=== PATIENT | male | born 1950 | race Caucasian/White ===

== ENCOUNTER 2016-09-29 14:34 | Inpatient (IN) ==
--- NOTE | 2016-09-29 14:43 | PROVIDER DOCUMENTATION ---
HPI-Neurological Disorder - General Chief Complaint: Seizure Stated Complaint: UNCONSCIOUS/ETOH Time Seen by Provider: 09/29/16 14:39 Source: patient, EMS, old records Allergies/Adverse Reactions: Patient Allergies Allergy/AdvReac Type Severity Reaction Status Date / Time propoxyphene HCl * Allergy seizures Verified 05/18/15 15:04 [From [facility]] Home Medications: Home Medication List Medication Instructions Recorded Confirmed Last Taken Type No Home Medications 12/24/14 09/29/16 Unknown History - History of Present Illness-Neuro Nature of Presenting Problem: pt w/ known hx of alcoholism and hx of prior seizure several years ago, brought by EMS summoned by ? person at pt' home who witnessed a tonic-clonic seizure. pt was incontinent w/ typical post-ictal confusion upon arrival, now rapidly clearing. he reports he wanted to "get off" the alcohol and has had nothing to drink (and no BZD or other substitution Rx) for past several days. he denies injury from the seizure. he denies hallucinosis. he denies recent head injury , or "sickness." Review of Systems - Adult - REVIEW OF SYSTEMS - ADULT Constitutional: reports: no symptoms reported Eyes: reports: no symptoms reported Ears, Nose, Mouth & Throat: reports: no symptoms reported Cardiovascular: reports: no symptoms reported Respiratory: reports: no symptoms reported Gastrointestinal: reports: no symptoms reported Genitourinary: reports: no symptoms reported Musculoskeletal: reports: no symptoms reported Integumentary: reports: no symptoms reported Neurological: reports: see HPI Psychiatric: reports: no symptoms reported Endocrine: reports: no symptoms reported Hematologic/Lymphatic: reports: no symptoms reported Allergic/Immunologic: reports: no symptoms reported All Other Systems: Reviewed and Negative Past History - Adult - PAST MEDICAL HISTORY-ADULT Review of Records: reports: Old Records Reviewed Major Childhood Illnesses: reports: denies history Cardiovascular: reports: HTN, hyperlipidemia Neurological: reports: CVA Psychiatric: reports: depression - PRIOR SURGERIES/PROCEDURES Surgical/Procedure History: reports: none - IMMUNIZATION STATUS Childhood Immunizations: See Nurse Assessment Flu Vaccine: See Nurse Assessment Physical Exam- Neurological - Physical Exam-Neuro Initial Vital Signs Reviewed: Yes General Appearance: alert, mild distress Eye Exam: bilateral eye: PERRL, EOMI HENMT: normocephalic/atraumatic Head Injury: no evidence of injury Neck: non-tender, full range of motion Respiratory: lungs clear, normal breath sounds Cardiovascular: normal peripheral pulses, regular rate, rhythm, tachycardia. negative: JVD Abdominal Exam: normal bowel sounds, non tender, soft, no pulsatile mass. negative: abdominal bruit, abnormal bowel sounds Peripheral Pulses: radial (R): 2+, radial (L): 2+ Extremity: normal range of motion, non-tender, normal inspection crisis intervention specialist Exam: normal hearing, normal speech, PERRL. negative: facial droop, tongue deviation to R, tongue deviation to L Neurologic: crisis intervention specialist II-XII nml as tested, no motor/sensory deficits, other (recalls recent September 27 holiday, otherwise disoriented to day of week, month; no response to query re: current events in news.). negative: aphasia, EOM palsy, facial droop, focal weakness, motor weakness Progress - PLAN OF CARE/RESULTS Progress/Plan/Lab Results: Vital Signs - 8 hr 09/29/16 15:00 09/29/16 15:45 Temperature 98.2 F Pulse Rate 118 H 88 Respiratory Rate 26 H 22 Blood Pressure 181/83 186/95 O2 Sat by Pulse Oximetry 93 L 97 Laboratory Results - last 24 hr 09/29/16 09/29/16 09/29/16 14:45 14:45 14:45 WBC 12.03 H RBC 5.36 Hgb 16.2 Hct 45.5 MCV 84.9 MCH 30.2 MCHC 35.6 RDW Std Deviation 13.2 Plt Count 193 MPV 9.4 Immature Gran % (Auto) 0.3 Neut % (Auto) 71.7 Lymph % (Auto) 18.5 L [place] % (Auto) 8.6 Eos % (Auto) 0.2 Baso % (Auto) 0.7 Immature Gran # (Auto) 0.04 Neut # (Auto) 8.63 H Lymph # (Auto) 2.22 [place] # (Auto) 1.03 H Eos # (Auto) 0.03 Baso # (Auto) 0.08 Sodium 138 Potassium 4.3 Chloride 89 L Carbon Dioxide 16 L Anion Gap 33 BUN 10 Creatinine 1.2 Estimated GFR/1.73 m2 > 60 BUN/Creatinine Ratio 8 Glucose 205 H Calculated Osmolality 281 Calcium 9.7 Magnesium 2.2 Total Bilirubin 1.39 H AST 162 H ALT 160 H Alkaline Phosphatase 63 Total Protein 7.7 Albumin 4.5 Globulin 3.2 Albumin/Globulin Ratio 1.4 Urine Opiates Screen Ur Oxycodone Screen Ur Methadone, Qual Ur Barbiturates Screen Ur Phencyclidine Scrn Ur Amphetamines Screen U Benzodiazepines Scrn Urine Cocaine Screen U Cannabinoids Screen Plasma/Serum Ethyl Alc 09/29/16 14:45 WBC RBC Hgb Hct MCV MCH MCHC RDW Std Deviation Plt Count MPV Immature Gran % (Auto) Neut % (Auto) Lymph % (Auto) [place] % (Auto) Eos % (Auto) Baso % (Auto) Immature Gran # (Auto) Neut # (Auto) Lymph # (Auto) [place] # (Auto) Eos # (Auto) Baso # (Auto) Sodium Potassium Chloride Carbon Dioxide Anion Gap BUN Creatinine Estimated GFR/1.73 m2 BUN/Creatinine Ratio Glucose Calculated Osmolality Calcium Magnesium Total Bilirubin AST ALT Alkaline Phosphatase Total Protein Albumin Globulin Albumin/Globulin Ratio Urine Opiates Screen NONE DETECTED Ur Oxycodone Screen NONE DETECTED Ur Methadone, Qual NONE DETECTED Ur Barbiturates Screen NONE DETECTED Ur Phencyclidine Scrn NONE DETECTED Ur Amphetamines Screen NONE DETECTED U Benzodiazepines Scrn NONE DETECTED Urine Cocaine Screen NONE DETECTED U Cannabinoids Screen NONE DETECTED Plasma/Serum Ethyl Alc Orders Category Date Time Status Admit - [facility] Routine AdmDCTranf 09/29/16 16:44 Ordered Cardiac Monitoring DIRECTED Care 09/29/16 14:43 Active HEAD W/O CONTRAST [CT] Stat Exams 09/29/16 14:43 Completed ALCOHOL BLOOD Stat Lab 09/29/16 14:45 Completed CBC WITH DIFF [HEME] Stat Lab 09/29/16 14:45 Completed COMPREHENSIVE METABOLIC PANEL [CHEM] Stat Lab 09/29/16 14:45 Completed MAGNESIUM [CHEM] Stat Lab 09/29/16 14:45 Completed URINE DRUG SCREEN Stat Lab 09/29/16 14:45 Completed Lorazepam [Ativan] Med 09/29/16 14:53 Discontinued 1 mg IV NOW ONE Phenobarbital Med 09/29/16 14:52 Discontinued 130 mg IV NOW ONE Transfer/Admit Order [TRANSFER] Routine Transfer 09/29/16 16:43 Ordered labs and imaging unremarkable, however patient very bizarre in room: will consult for admission/CIWA protocol. Result Diagrams: 09/29/16 14:45 09/29/16 14:45 Departure - Departure Date of Disposition Decision: 09/29/16 Time of Disposition Decision: 16:46 DIAGNOSIS: Alcohol withdrawal, Seizure Disposition: ADMITTED INPATIENT 09 Certified Medical Emergency: Emergent Condition: Serious - Critical Care Note This patient required my direct & personal management of CC.: No
[2016-09-29] MEDS ORDERED: PHENOBARBITAL IV ONE (14:52)
[2016-09-29] MEDS ORDERED: ATIVAN IV ONE (14:53)
[2016-09-29 14:58] LABS: MANUAL DIFF NEEDED? NO
[2016-09-29 15:03] LABS: BASO% 0.7 % (0.0-0.8); EOS# 0.03 X1000 (0.0-0.7); EOS% 0.2 % (0.0-10.0); HEMATOCRIT 45.5 % (42.0-52.0); HEMOGLOBIN 16.2 g/dL (14.0-18.0); IMM GRAN# 0.04 X1000 (0.0-0.04); IMM GRAN% 0.3 % (0.0-0.5); LYMPH# 2.22 X1000 (1.2-3.4); LYMPH% 18.5 % (20.5-51.1); MCH 30.2 PG (27-31); MCHC 35.6 g/dL (33-37); MCV 84.9 FL (81-99); MONO# 1.03 X1000 (0.11-0.59); MONO% 8.6 % (1.7-9.3); MPV 9.4 FL (7.4-10.4); NEUT% 71.7 % (42.2-75.2); PLT 193 X1000 (130-400); RBC 5.36 XMIL (4.7-6.1)
--- NOTE | 2016-09-29 15:16 | Diag Imaging Result Doc PS360 ---
EXAM: HEAD W/O CONTRAST HISTORY: seizure TECHNIQUE: CT of the head without contrast COMMENT: there is focal atrophy in the left occipital lobe and more central encephalomalacia in the right occipital lobe, Which was also present at the time the previous study of 12/18/2015. No evidence of mass effect bleed or abnormal extra-axial fluid collections present. The visualized paranasal sinuses are clear. The calvarium is intact. IMPRESSION: No evidence of acute intracranial disease. Electronically signed by Carlos Hernández 09/29/2016 3:13 PM
[2016-09-29 15:23] LABS: AGAP 33; ALBUMIN 4.5 g/dL (3.5-5.0); ALKALINE PHOSPHATASE 63 U/L (32-122); BUN 10 mg/dL (8-22); CALCIUM 9.7 mg/dL (8.8-10.2); CHLORIDE 89 mmol/L (98-107); COSMO 281; GOT 162 U/L (10-34); GPT 160 U/L (10-44); MAGNESIUM 2.2 mg/dL (1.5-2.7); POTASSIUM 4.3 mmol/L (3.5-5.1); SODIUM 138 mmol/L (136-145); TCO2 16 mmol/L (25-35); TOTAL BILIRUBIN 1.39 mg/dL (0.20-1.00); TOTAL PROTEIN 7.7 g/dL (6.3-8.3)
[2016-09-29 15:27] LABS: UR AMPHETAMINES QUAL NONE DETECTED (NONE DETECT); UR BARBITUATES QUAL NONE DETECTED (NONE DETECT); UR BENZODIAZEPIN QUAL NONE DETECTED (NONE DETECT); UR CANNABINOIDS QUAL NONE DETECTED (NONE DETECT); UR COCAINE QUAL NONE DETECTED (NONE DETECT); UR METHADONE QUAL NONE DETECTED (NONE DETECT); UR OPIATES QUAL NONE DETECTED (NONE DETECT); UR OXYCODONE QUAL NONE DETECTED (NONE DETECT); UR PCP QUAL NONE DETECTED (NONE DETECT)
[2016-09-29] MEDS ORDERED: LOPRESSOR IV ONE (17:11)
--- NOTE | 2016-09-29 17:20 | HISTORY AND PHYSICAL ---
HISTORY OF PRESENT ILLNESS: This is a 66-year-old who presented to the emergency room. He has not had a drink and apparently he denies drinking daily, but does drink quite a bit. He says he drinks about a pint a week. At any rate, he was found by his roommate to have a seizure. He does not have any reported past medical history and I do not see any old documentation. He does smoke 1 pack per day. He has not had any surgery. Apparently he had a seizure 30 years ago. I do not have any details. He denied that it was during alcohol withdrawal. He denies any other illicit medication. REVIEW OF SYSTEMS: In general, he does not give us much. He does not report any weight gain or loss. He does not report any fever or chills. No trouble with tremors that he knows of. No focal neurologic deficit. He denies today. Apparently he was found in the room and this roommate said he had a seizure. We did not get to talk to the roommate. This was reported secondhand. He did not have incontinence of bowel or bladder apparently. He has a little tremor in his fingers and also in his jaw, and possibly even a little bit of tardive dyskinesia in his tongue and lip motions. PHYSICAL EXAMINATION: VITAL SIGNS: In the emergency room, temperature 98.2 degrees, pulse 80, respirations 22, blood pressure 186/95. HEENT: Pupils are equal and round. LUNGS: Clear in all lung rios. CARDIOVASCULAR: Regular rhythm and rate without murmur or S3. ABDOMEN: Soft. SKIN: Warm and dry. LAB: White count 43314, hematocrit 45, platelet count 193,000. Sodium 138, potassium 4.3, chloride 89, bicarb 16, BUN 10, creatinine 1.2. Blood sugar 205. Calculated osmolality 281. Magnesium 2.2. Total bilirubin 1.39. AST 162, ALT 160, alkaline phosphatase 63, albumin 4.5. Urinalysis unremarkable. Urine toxicology screen also unremarkable. CT of head without contrast from negative. ASSESSMENT/PLAN: Alcohol withdrawal. Not sure this was a seizure, but this could be a seizure from alcohol withdrawal. Plan to admit him and give some IV fluids. We will supplement him with some thiamine and magnesium. Otherwise his electrolytes look good. We will give him some folate. We will check his B12 and folate in the morning, T4 and TSH. We will monitor with groundwater monitoring technician. We will use phenobarbital and Ativan p.r.n. Note there is potential he could go into the more serious delirium tremens. His alcohol level was 0 at this time. Not sure exactly when he quit. cc: Robby Castaneda MD
[2016-09-29] MEDS ORDERED: ZOFRAN IV PRN (17:36)
[2016-09-29] MEDS ORDERED: PHENOBARBITAL IV PRN (17:36)
[2016-09-29] MEDS: NS 1,000 ML IV SCH (18:31)
[2016-09-29 18:42] LABS: AMYLASE 42 U/L (20-200); LIPASE 22 U/L (13-60)
[2016-09-29] MEDS ORDERED: M.V.I.-12 10 ML, FOLIC ACID 1 MG, MAGNESIUM SULFATE 1 GM, THIAMINE 100 MG in NS 1,000 ML IV ONE (19:00)
[2016-09-29] MEDS: NICODERM PATCH TD SCH (21:29)
[2016-09-29] MEDS: ATIVAN IV PRN (21:29)
[2016-09-30 05:25] LABS: MANUAL DIFF NEEDED? NO
[2016-09-30 05:34] LABS: BASO% 0.3 % (0.0-0.8); EOS% 1.1 % (0.0-10.0); HEMATOCRIT 39.1 % (42.0-52.0); HEMOGLOBIN 13.9 g/dL (14.0-18.0); IMM GRAN# 0.02 X1000 (0.0-0.04); IMM GRAN% 0.2 % (0.0-0.5); LYMPH# 1.83 X1000 (1.2-3.4); LYMPH% 19.4 % (20.5-51.1); MCH 30.1 PG (27-31); MCHC 35.5 g/dL (33-37); MCV 84.6 FL (81-99); MONO# 0.69 X1000 (0.11-0.59); MONO% 7.3 % (1.7-9.3); MPV 9.4 FL (7.4-10.4); NEUT% 71.7 % (42.2-75.2); PLT 122 X1000 (130-400); RBC 4.62 XMIL (4.7-6.1)
[2016-09-30 05:56] LABS: INR 0.97; PROTIME 10.2 Seconds (9.2-11.7); PTT 27.5 Seconds (22.0-36.0)
[2016-09-30 06:09] LABS: AGAP 11; ALBUMIN 3.5 g/dL (3.5-5.0); ALKALINE PHOSPHATASE 47 U/L (32-122); BUN 10 mg/dL (8-22); CALCIUM 8.3 mg/dL (8.8-10.2); CHLORIDE 98 mmol/L (98-107); COSMO 275; GOT 76 U/L (10-34); GPT 95 U/L (10-44); MAGNESIUM 2.2 mg/dL (1.5-2.7); POTASSIUM 3.3 mmol/L (3.5-5.1); SODIUM 137 mmol/L (136-145); TCO2 28 mmol/L (25-35); TOTAL BILIRUBIN 1.28 mg/dL (0.20-1.00); TOTAL PROTEIN 5.9 g/dL (6.3-8.3)
--- NOTE | 2016-09-30 06:12 | EKG Report ---
Test Performed on : 09/30/2016 05:04:14 AM Test Reason : chest pain Blood Pressure : / mmHG Vent. Rate : 080 BPM Atrial Rate : 080 BPM P-R Int : 136 ms QRS Dur : 094 ms QT Int : 414 ms P-R-T Axes : 046 061 067 degrees QTc Int : 477 ms Normal sinus rhythm. Normal ECG When compared with ECG of 29-SEP-2016 14:43, (Unconfirmed) Vent. rate has decreased BY [address] no longer depressed in Anterolateral leads Confirmed by Maggie Lyles MD ([id number]) on 09/30/2016 1:02:32 PM
[2016-09-30] MEDS: NS 1,000 ML IV SCH (06:24)
[2016-09-30] MEDS: ATIVAN IV PRN ×7 (06:33→23:52)
[2016-09-30 06:55] LABS: FREE T4 1.49 ng/dL (0.93-1.70)
--- NOTE | 2016-09-30 07:15 | EKG Report ---
Test Performed on : 09/29/2016 2:43:20 PM Test Reason : No Order in [facility] Blood Pressure : / mmHG Vent. Rate : 124 BPM Atrial Rate : 124 BPM P-R Int : 140 ms QRS Dur : 086 ms QT Int : 328 ms P-R-T Axes : 069 063 082 degrees QTc Int : 471 ms Sinus tachycardia. Possible Left atrial enlargement Nonspecific ST abnormality Abnormal ECG When compared with ECG of 18-MAY-2015 14:43, ST now depressed in Anterior leads Unconfirmed Result
[2016-09-30] MEDS: NICODERM PATCH TD SCH (09:17)
--- NOTE | 2016-09-30 10:03 | PROGRESS NOTE ---
DATE: 09/30/2016 SUBJECTIVE: Mr. Medina feels good. He had a good night. He said the Ativan was wonderful. OBJECTIVE: Temperature 98.1 degrees, pulse 83, respirations 22, blood pressure 154/79. Pupils are equal and round. Lungs are clear in all lung rios. Cardiovascular: Regular rhythm and rate without murmur or S3. Abdomen soft. Skin warm and dry. Good urine output. LABORATORY DATA: White count 9420, hematocrit 39, platelet count 122,000. Sodium 137, potassium 3.3, chloride 98, bicarb 28. BUN 10, creatinine 0.9, total bilirubin 1.28. Calcium 8.3. AST 76, ALT 95, which have come down nicely from 160 and 160 respectively. His amylase and lipase were unremarkable. Folate was greater than 40. Thyroid function is unremarkable. ASSESSMENT AND PLAN: 1. Alcohol withdrawal. Apparently, he had a witnessed seizure at home by his roommate. He has not had anymore activity. He does not show any signs at this point of delirium tremens. I will watch him today and move him to the floor. 2. Continue Ativan prophylactically and phenobarbital prophylactically. 3. Alcohol hepatitis. Liver enzymes seem to be coming down. 4. Nutrition appears to be good. We will move him to the floor and keep him on a monitor. If he does okay today, he could probably go home tomorrow. I have given him thiamine and multivitamin daily. His folic acid level looks good. cc: Robby Castaneda MD
[2016-09-30] MEDS: PHENOBARBITAL IV PRN (19:45)
[2016-09-30] MEDS: M.V.I.-12 10 ML, FOLIC ACID 1 MG, MAGNESIUM SULFATE 1 GM, THIAMINE 100 MG in NS 1,000 ML IV SCH (23:52)
[2016-10-01] MEDS: PHENOBARBITAL IV PRN ×4 (00:22→20:13)
[2016-10-01] MEDS: NICODERM PATCH TD SCH (10:16)
[2016-10-01] MEDS: ATIVAN IV PRN ×3 (10:16→21:41)
[2016-10-01] MEDS: NS 1,000 ML IV SCH (12:39)
--- NOTE | 2016-10-01 13:01 | PROGRESS NOTE ---
DATE: 10/01/2016 He required four-point restraints. He got more confused and more agitated and appears to be go through delirium tremens. Temp 97.5 degrees, pulse 87, respirations 19, blood pressure 144/83.HEENT: Pupils are equal, round. Lungs: Are clear in all lung rios. Cardiovascular: Regular rhythm and rate without murmur or S3. Abdomen: Soft. Skin: Is warm and dry. Urine output was over 500 mL. LAB: Reviewed from yesterday. ASSESSMENT AND PLAN: 1. Alcohol withdrawal with apparently witnessed seizure at home now in delirium tremens. Continue his Ativan, restraints as necessary and phenobarbital. 2. Alcohol hepatitis. Appears liver enzymes are getting better. 3. Nutrition. Poor p.o. intake right now. So we will check some more lab in the morning to supplement some potassium today with IV. cc: Robby Castaneda MD
[2016-10-01] MEDS: POTASSIUM CHLORIDE 20 MEQ/SWI 20 MEQ/100 ML IVPB IV SCH ×2 (14:00→21:41)
[2016-10-01] MEDS: M.V.I.-12 10 ML, FOLIC ACID 1 MG, MAGNESIUM SULFATE 1 GM, THIAMINE 100 MG in NS 1,000 ML IV SCH (21:41)
[2016-10-02] MEDS: NS 1,000 ML IV SCH ×2 (00:02→13:42)
[2016-10-02] MEDS: ATIVAN IV PRN ×3 (00:34→22:51)
[2016-10-02] MEDS: PHENOBARBITAL IV PRN ×2 (02:14→17:05)
[2016-10-02 07:12] LABS: AGAP 14; ALBUMIN 3.8 g/dL (3.5-5.0); ALKALINE PHOSPHATASE 67 U/L (32-122); BUN 5 mg/dL (8-22); CALCIUM 8.6 mg/dL (8.8-10.2); CHLORIDE 98 mmol/L (98-107); COSMO 269; GOT 71 U/L (10-34); GPT 97 U/L (10-44); MAGNESIUM 2.3 mg/dL (1.5-2.7); SODIUM 136 mmol/L (136-145); TCO2 24 mmol/L (25-35); TOTAL BILIRUBIN 0.76 mg/dL (0.20-1.00); TOTAL PROTEIN 6.3 g/dL (6.3-8.3)
[2016-10-02] MEDS: NICODERM PATCH TD SCH (08:50)
--- NOTE | 2016-10-02 10:11 | PROGRESS NOTE ---
DATE: 10/02/2016 SUBJECTIVE: Mr. Medina is still requiring 4-point restraints. He is sleeping soundly at the present time. Mild confusion and agitation consistent with delirium tremens. OBJECTIVE: Temperature 96.9 degrees, pulse 90, respirations 20, blood pressure 169/103HEENT: Pupils are equal, round. Lungs: Clear in all lung rios. Cardiovascular: Regular rhythm and rate without murmur or S3. Abdomen: Soft. Skin is warm and dry. Urine output 600 mL. LABORATORY: Reviewed lab from the and chemistries from the 9, this morning, sodium 136, potassium 4.0, chloride 98, and BUN 5. Creatinine 0.7, magnesium 2.3. ASSESSMENT AND PLAN: 1. Alcohol withdrawal. Apparently witnessed seizure at home. Went through alcohol withdrawal, now going through delirium tremens. 2. Alcoholic hepatitis. Seems to be improving. 3. Because of delirium tremens p.o. intake is poor. Continue present IV fluids. We will check some labs in the morning. Still requiring four-point restraint. He is getting Ativan 1-2 IV q.2 hours p.r.n.,normal saline at 75 mL an hour and getting phenobarbital 130 mg IV q.4 hours p.r.n. cc: Robby Castaneda MD
[2016-10-03] MEDS: M.V.I.-12 10 ML, FOLIC ACID 1 MG, MAGNESIUM SULFATE 1 GM, THIAMINE 100 MG in NS 1,000 ML IV SCH ×2 (02:26→21:48)
[2016-10-03 06:08] LABS: MANUAL DIFF NEEDED? NO
[2016-10-03 06:20] LABS: BASO% 0.4 % (0.0-0.8); EOS# 0.27 X1000 (0.0-0.7); EOS% 3.2 % (0.0-10.0); HEMOGLOBIN 14.5 g/dL (14.0-18.0); IMM GRAN# 0.02 X1000 (0.0-0.04); IMM GRAN% 0.2 % (0.0-0.5); LYMPH# 1.72 X1000 (1.2-3.4); LYMPH% 20.5 % (20.5-51.1); MCH 29.7 PG (27-31); MCHC 34.5 g/dL (33-37); MCV 86.1 FL (81-99); MONO# 0.84 X1000 (0.11-0.59); NEUT% 65.7 % (42.2-75.2); PLT 105 X1000 (130-400); RBC 4.88 XMIL (4.7-6.1)
[2016-10-03 06:34] LABS: AGAP 12; ALBUMIN 3.4 g/dL (3.5-5.0); ALKALINE PHOSPHATASE 67 U/L (32-122); BUN 7 mg/dL (8-22); CALCIUM 9.1 mg/dL (8.8-10.2); CHLORIDE 99 mmol/L (98-107); COSMO 275; GOT 50 U/L (10-34); GPT 76 U/L (10-44); MAGNESIUM 2.1 mg/dL (1.5-2.7); POTASSIUM 4.6 mmol/L (3.5-5.1); SODIUM 139 mmol/L (136-145); TCO2 28 mmol/L (25-35); TOTAL BILIRUBIN 0.88 mg/dL (0.20-1.00); TOTAL PROTEIN 6.4 g/dL (6.3-8.3)
[2016-10-03] MEDS: NICODERM PATCH TD SCH (08:40)
[2016-10-03] MEDS: NS 1,000 ML IV SCH ×2 (17:25→21:53)
--- NOTE | 2016-10-03 17:40 | PROGRESS NOTE ---
DATE: 10/03/2016 SUBJECTIVE: Mr. Medina is awake. He does have a little bit of a cough but he is alert, oriented and is hungry. He is eating a little bit but the nurses want to watch as he seems to have a little trouble with his swallow. OBJECTIVE: Vital Signs: Temp 98.8 degrees, pulse 99, respirations 22, blood pressure 163/86. Lungs: Clear in all lung rios. Cardiovascular Examination: Regular rhythm and rate without murmur or S3. Abdomen: Soft. Skin: Warm and dry. Urine output: 1300 mL. LABS: White count 8370, hematocrit 42, platelet count 105,000. Sodium 139, potassium 4.6, chloride 99, BUN 7, creatinine 0.9, AST 50, ALT 76, albumin 3.4. ASSESSMENT AND PLAN: 1. Right upper and middle lower lobe. Continued her IV antibiotics, incentive spirometry with DuoNebs. 2. Urinary tract infection Pseudomonas pansensitive. Continue current regimen. 3. History of atrial fibrillation, rate controlled. 4. Acute renal injury better with fluids. 5. Chronic obstructive pulmonary disease. Good air and gas exchange. 6. Bilateral lower extremity swelling which is better. 7. He appears to have gone through delirium tremens and seems to be doing much better. Advance his diet and see if we can get him out of bed and do some ambulating. Hopefully he can go home soon. He is on nicotine patch. He is still getting fluids 75 mL/hr. cc: Robby Castaneda MD
[2016-10-04 08:19] VITALS: BP 155/81
[2016-10-04] MEDS: NICODERM PATCH TD SCH (08:50)
--- NOTE | 2016-10-04 14:28 | PROGRESS NOTE ---
DATE: 10/04/2016 SUBJECTIVE: He feels better. He would like to get out of bed and see if he can get his equilibrium. Actually, he did have runny stools. The nurse was concerned about possible C. difficile. He is eating much better. PHYSICAL EXAMINATION: Vital Signs: Temperature 98.6 degrees, pulse 86, respirations 22, blood pressure 155/81. Lungs: Are clear in all lung rios. Cardiovascular Examination: Regular rhythm and rate without murmur or S3. CVP less than 6 cm. Is and Os: Urine output 1300 mL. LAB: From the 10th, reviewed, unremarkable. ASSESSMENT AND PLAN: 1. Alcohol withdrawal. He has gone through a witnessed seizure at home and went to delirium tremens. 2. Alcoholic hepatitis, improved. 3. He is improving his strength and appetite has improved. He has loose stools. We will check for C. difficile. I have discussed the importance of cessation of alcohol. Recommended AA. 4. His orders are reviewed. He is on a nicotine patch. Getting normal saline at 75 mL an hour. We will get physical therapy to start walking him around some. cc: Robby Castaneda MD
[2016-10-04] MEDS: NS 1,000 ML IV SCH (15:40)
--- NOTE | 2016-10-04 17:18 | DISCHARGE SUMMARY ---
ADMISSION DATE: 09/29/2016 DISCHARGE DATE: 10/04/2016 HOSPITAL COURSE: This is a 66-year-old presented to the emergency room. He has not had a drink and apparently denies drinking daily but he does drink quite a bit. He has not had any drink in a couple days, said he drinks about a pint a week. At any rate he was found to have by his roommate had a seizure. Does not have any report of past medical history. Did not see any previous documentation hospitalization. He does smoke a pack a day and he denied any surgery. Apparently had a seizure 30 years ago, denied drinking, denied any alcohol withdrawal recently. He was admitted and put on front desk monitor. EKG was really pretty unremarkable on presentation. He had mild elevation of his transaminase. He did start having hallucinations and went into delirium tremens, required some restraints. We treated with Ativan and some phenobarbital, showed progressive improvement, woke up, was able start eating, ambulating well and requested to go home. We had numerous discussions about the importance of quitting alcohol. DISCHARGE MEDICATIONS: He was not on any medication came in so he really had no medications going out. Encouraged him to pursue Alcoholics Anonymous. I will give a prescription for a nicotine patch if he wants to try it and encourage him to get a primary care physician for followup. cc: Robby Castaneda MD
== END 2016-10-04 17:19 | disposition home or self-care (01) ==
LOC: ED 14:34 → ICU 17:03 → 3N 09-30 13:23
PROVIDERS: ATTEND Emergency Medicine